=== PATIENT | female | born 1980 | race African-American/Black ===

== ENCOUNTER 2022-05-19 14:00 | Emergency (ER) | payer MEDICAID ==
[~2022-05-19] VITALS: Ht 177.8 cm; Wt 100.0 kg
[2022-05-19 14:03] VITALS: BP 141/97
[2022-05-19 15:12] LABS: CHLORIDE 104 mEq/L (98-107)
[2022-05-19 15:37] LABS: BASOPHILS % 0.4 % (0.0-2.0); EOSINOPHILS % 0.1 % (0.0-5.0); HEMATOCRIT. 38.9 % (36.0-48.0); HEMOGLOBIN. 12.6 g/dL (12.0-16.0); LYMPHOCYTES % 25.2 % (20.0-50.0); MEAN CORPUSCULAR HEMOGLOBIN 28.2 pg (28.0-32.0); MEAN CORPUSCULAR VOLUME 86.9 fL (81.0-99.0); MEAN PLATELET VOLUME 8.4 fl (7.4-10.4); MONOCYTES % 7.2 % (2.0-8.0); NEUTROPHILS % 67.1 % (40.0-76.0); PLATELET 176 x1000/uL (130-400); RED BLOOD CELL COUNT 4.48 mill/uL (4.2-5.4); RED CELL DISTRIBUTION WIDTH 17.4 % (11.6-14.6)
== END 2022-05-19 16:36 | disposition home or self-care (01) ==
LOC: ER 14:31
DX: R05.9 Cough, unspecified (principal); R06.02 Shortness of breath; Z87.01 Personal history of pneumonia (recurrent)
CPT/HCPCS: 36415; 71045; 80053; 81025; 83880; 84484; 85025; 93005; 99285